=== PATIENT | male | born 1950 | race Caucasian/White ===

== ENCOUNTER 2021-07-10 12:49 | Outpatient (CLI) | payer MEDICARE, MEDICAID ==
[~2021-07-10 12:49] MED LIST: FLO0.4C PO
== END 2021-07-10 23:59 | disposition home or self-care (01) ==
LOC: RAD 12:49
DX: R13.12 Dysphagia, oropharyngeal phase (principal); Z85.89 Personal history of malignant neoplasm of other organs and systems; Z79.899 Other long term (current) drug therapy
CPT/HCPCS: 74230